=== PATIENT | female | born 1955 | race Caucasian/White ===

== ENCOUNTER 2022-08-25 09:42 | Emergency (ER) | payer MEDICARE, BC ==
[2022-08-25] MEDS ORDERED: Acetaminophen/HYDROcodone 325-5 MG Tab PO STA (10:40)
== END 2022-08-25 11:41 | disposition home or self-care (01) ==
LOC: FB.ED 09:42
DX: S52.502A Unspecified fracture of the lower end of left radius, initial encounter for closed fracture (principal); S52.501A Unspecified fracture of the lower end of right radius, initial encounter for closed fracture; Z79.899 Other long term (current) drug therapy; Z79.82 Long term (current) use of aspirin; W00.0XXA Fall on same level due to ice and snow, initial encounter
CPT/HCPCS: 73110; 99283; A9270